=== PATIENT | female | born 1945 | race Two or more races ===

== ENCOUNTER 2017-09-18 13:40 | Day surgery (SDC) | payer OTHER ==
[~2017-09-18] VITALS: Ht 149.9 cm; Wt 75.5 kg
[~2017-09-18 13:40] MED LIST: ALBU90OI61 INH; ASPI81CH PO; ASPI81EC PO; ATOR10; ATOR80 PO; BUPR150ER PO; BUPR75 PO; CYCL10 PO; FAMO40; HYDCHL12.5 PO; HYDR1TAB94 PO; LEVO750 PO; LEVSOD100 PO; LEVSOD50 PO; METF500C PO; Multiple Vitam1 EAC1 PO; Norco 5-325 Ta1 EACH PO; OXYACE5T PO; Pepcid40 MG PO; QVAR7.3 G1 INH; VALS80 PO; VARE1; VICODIN 5-3001 EACH PO; Valium5 MG PO; Vitamin D2000 UNIT PO; Zofran8 MG PO
[2018-05-06] MEDS ORDERED: BP MED PO (14:31)
[2018-05-06] MEDS ORDERED: BREO ELLIPTA 21 EACH INH (14:46)
[2018-05-06] MEDS ORDERED: VALS80 PO (14:46)
[2018-05-18] MEDS ORDERED: LOSA50 PO (18:47)
[2018-05-20] MEDS ORDERED: OXYC5 PO (15:51)
== END 2017-09-18 14:53 | disposition home or self-care (01) ==
LOC: ORSCSDS 13:40
PROVIDERS: Orthopaedic Surgery
PROC: 3E0R33Z Introduction of Anti-inflammatory into Spinal Canal, Percutaneous Approach (ICD-10-PCS; principal; 2017-09-18 14:30)
DX: M54.16 Radiculopathy, lumbar region (principal); M48.061 Spinal stenosis, lumbar region without neurogenic claudication; E11.42 Type 2 diabetes mellitus with diabetic polyneuropathy; E78.5 Hyperlipidemia, unspecified; J44.9 Chronic obstructive pulmonary disease, unspecified; K76.0 Fatty (change of) liver, not elsewhere classified; E03.9 Hypothyroidism, unspecified; Z87.891 Personal history of nicotine dependence; Z79.82 Long term (current) use of aspirin; Z79.84 Long term (current) use of oral hypoglycemic drugs; Z79.899 Other long term (current) drug therapy
CPT/HCPCS: J1040

== ENCOUNTER 2019-05-11 05:39 | Day surgery (SDC) | payer OTHER ==
[~2019-05-11] VITALS: Ht 152.4 cm; Wt 76.0 kg
[~2019-05-11 05:39] MED LIST changes: +ACID REDUCER 1150 MG PO; +BP MED PO; +BREO ELLIPTA 21 EACH; +BREO ELLIPTA 21 EACH INH; +BUPROPION HCL200 MG PO; +BUSP10 PO; +LEVSOD75 PO; +LOSA50 PO; +MECL12.5 PO; +OXYC5 PO; +PEPCID40 MG PO; +THERA-D2000 UNIT PO; +Ventolin/Prove6.7 GM INH
--- NOTE | 2019-05-11 08:11 | NUR ---
Pt received from Trent Gomez RN, pt drowsy, cooperative. Denies pain, right radial site wnl. Call light given. Pt with HOB 35 %. IV NS with 500ml ns dianne infusing into left a/c. Pt with SR. Pt states no family here at this time.
--- NOTE | 2019-05-11 10:37 | NUR ---
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 Pt will call a cab for return ride. She is alert and oreinted.
--- NOTE | 2019-05-11 11:23 | NUR ---
Pt right radial tr-band removed. No bleeding or hematoma noted. Pt denies pain. Right radial site cleansed with light dabb of water. Dabbed dry cloth dot applied. Left A/C dressing removed, catheter intact. Pt able to ambulate assisted pt in dressing. Reviewed all instructions NO metformin for 48 hrs. Pt verbalizes understanding of discharge instructions, including appointment follow up. Pt did not make pre arrangments for discharge. Taxi called and pt paid for her ride. She had neighbors who are out of town that she was counting on. Care provider not back until 5:00. Pt did not have any contact # because she did not bring purse. Stable to home.
--- NOTE | 2019-05-11 11:28 | NUR ---
[facility] via taxi.
== END 2019-05-11 11:30 | disposition home or self-care (01) ==
LOC: MHTC 05:39
DX: Z01.810 Encounter for preprocedural cardiovascular examination (principal); I25.10 Atherosclerotic heart disease of native coronary artery without angina pectoris; E78.5 Hyperlipidemia, unspecified; E11.9 Type 2 diabetes mellitus without complications; M19.90 Unspecified osteoarthritis, unspecified site; E03.9 Hypothyroidism, unspecified; Z87.891 Personal history of nicotine dependence; Z88.8 Allergy status to other drugs, medicaments and biological substances; Z88.5 Allergy status to narcotic agent; Z91.040 Latex allergy status; Z79.899 Other long term (current) drug therapy
CPT/HCPCS: 82947; 93005; 93010; 93454; 99152; 99153; C1769; C1894; J1644; J2250; J3010; J7030; Q9967

== ENCOUNTER → 2019-11-11 | Outpatient (CLI) | payer OTHER ==
[~2019-11-11] MED LIST changes: +METO25ER; +OMEP20ER PO
== END | disposition home or self-care (01) ==
LOC: LAB 18:29 → LAB SHORT 18:29 → LAB FUT 11-10 17:40
DX: R30.9 Painful micturition, unspecified (principal)
CPT/HCPCS: 87077; 87086; 87186

== ENCOUNTER → 2020-01-11 | Outpatient (CLI) | payer OTHER ==
[~2020-01-11] MED LIST changes: +CETI5 PO; -METO25ER; +METO25ER PO
[2020-01-11 19:50] LABS: Anion Gap 5 mmol/L (6-16); Blood Urea Nitrogen 14 mg/dL (8-24); CO2, Blood 27 mmol/L (21-32); Calcium, Blood 8.8 mg/dL (8.5-10.1); Chloride, Blood 104 mmol/L (98-108); Creatinine, Blood 0.78 mg/dL (0.40-1.00); Glomerular Filtration Rate >60 (60-); Glucose, Blood 110 mg/dL (70-99); Potassium, Blood 3.9 mmol/L (3.5-5.5); Sodium, Blood 136 mmol/L (136-145)
== END | disposition home or self-care (01) ==
LOC: LAB 18:42 → LAB SHORT 18:42 → EDSTATUS 01-10 17:10 → LAB FUT 01-10 17:10
PROVIDERS: Family Medicine
DX: E11.9 Type 2 diabetes mellitus without complications (principal)
CPT/HCPCS: 80048

== ENCOUNTER → 2021-01-17 | Outpatient (CLI) | payer OTHER | END | disposition home or self-care (01) | LOC: LAB SHORT 13:54 → PLD 13:54 | DX: E11.9 Type 2 diabetes mellitus without complications (principal); R82.90 Unspecified abnormal findings in urine | CPT/HCPCS: 82043; 87077; 87086; 87186 ==

== ENCOUNTER → 2021-07-05 | Outpatient (CLI) | payer OTHER ==
[2021-07-05 13:44] LABS: BASOPHILS PERCENT AUTO 1 % (0-2); EOSINOPHILS ABSOLUTE AUTO 0.15 K/mm3 (0.00-0.68); EOSINOPHILS PERCENT AUTO 2 % (0-6); Hematocrit 39.2 % (33.0-51.0); Hemoglobin 12.7 g/dL (11.5-16.0); IMMATURE GRAN ABSOLUTE AUTO 0.04 K/mm3 (0.00-0.10); IMMATURE GRAN PERCENT AUTO 0 % (0-1); LYMPHOCYTES ABSOLUTE AUTO 2.97 K/mm3 (0.84-5.20); LYMPHOCYTES PERCENT AUTO 32 % (21-46); MONOCYTES ABSOLUTE AUTO 0.48 K/mm3 (0.16-1.47); MONOCYTES PERCENT AUTO 5 % (4-13); Mean Corpuscular HGB 29.2 pg (26.0-34.0); Mean Corpuscular HGB Conc 32.4 g/dL (31.5-36.5); Mean Corpuscular Volume 90 fL (80-100); Mean Platelet Volume 10.3 fL (9.1-12.4); NEUTROPHILS ABSOLUTE AUTO 5.44 K/mm3 (1.96-9.15); NEUTROPHILS PERCENT AUTO 59 % (41-73); Platelet Count 311 K/mm3 (150-400); RDW Standard Deviation 46.2 fL (35.1-46.3); Red Blood Cell Count 4.35 M/mm3 (3.80-5.20); White Blood Cell Count 9.18 K/mm3 (4.00-11.30)
[2021-07-05 14:34] LABS: Alanine Aminotransfer (ALT/SGP 31 U/L (12-78); Albumin, Blood 3.5 g/dL (3.4-5.0); Albumin/Globulin Ratio 0.9 (0.8-1.8); Alk Phos 135 U/L (50-136); Anion Gap 10 mmol/L (6-16); Aspartate Aminotrans (AST/SGOT 21 U/L (12-37); Bilirubin, Total 0.5 mg/dL (0.1-1.0); Blood Urea Nitrogen 15 mg/dL (8-24); Bun/Creatinine Ratio 18.2 (12.0-20.0); CHOL/HDL RATIO 3.1; CO2, Blood 25 mmol/L (21-32); Calcium, Blood 9.4 mg/dL (8.5-10.1); Chloride, Blood 101 mmol/L (98-108); Cholesterol 138 mg/dL (50-200); Creatinine, Blood 0.82 mg/dL (0.40-1.00); Globulin, Blood 4.1 g/dL (2.2-4.0); Glomerular Filtration Rate >60 (60-); Glucose, Blood 102 mg/dL (70-99); HDL Cholesterol 45 mg/dL (>39); LDL/HDL RATIO 1.6; Low Density Lipoprotein Chol 73 mg/dL (0-110); Potassium, Blood 4.4 mmol/L (3.5-5.5); Sodium, Blood 136 mmol/L (136-145); Total Protein, Blood 7.6 g/dL (6.4-8.2); Triglycerides 101 mg/dL (30-160); Very Low Density Lipoprot Chol 20 mg/dL (6-32)
== END | disposition home or self-care (01) ==
LOC: LAB SHORT 09:20
PROVIDERS: Nurse Practitioner Family
DX: E11.9 Type 2 diabetes mellitus without complications (principal); I10 Essential (primary) hypertension; E03.9 Hypothyroidism, unspecified; E78.5 Hyperlipidemia, unspecified
CPT/HCPCS: 80053; 80061; 83036; 84443; 85025

== ENCOUNTER 2021-09-12 16:30 | Emergency (ER) | payer OTHER ==
[~2021-09-12] VITALS: Ht 152.4 cm; Wt 72.6 kg
[2021-09-12] MEDS ORDERED: HYDROCODONE-AC1 EA10 PO (17:50)
== END 2021-09-12 18:20 | disposition home or self-care (01) ==
LOC: ER 16:30
DX: S42.212A Unspecified displaced fracture of surgical neck of left humerus, initial encounter for closed fracture (principal); W18.30XA Fall on same level, unspecified, initial encounter; Z88.8 Allergy status to other drugs, medicaments and biological substances; Z88.5 Allergy status to narcotic agent; Z91.040 Latex allergy status; Z79.899 Other long term (current) drug therapy; Z79.84 Long term (current) use of oral hypoglycemic drugs; Z79.82 Long term (current) use of aspirin; Z87.891 Personal history of nicotine dependence
CPT/HCPCS: 73030; 96374; 99284-25; A9270; J1885

== ENCOUNTER 2021-09-14 10:53 | Observation (INO) | payer OTHER ==
[~2021-09-14] VITALS: Ht 147.3 cm; Wt 76.4 kg
[~2021-09-14 10:53] MED LIST changes: +HYDROCODONE-AC1 EA10 PO
[2021-09-14 12:31] LABS: Influenza A, PCR NEGATIVE (NEGATIVE); Influenza B, PCR NEGATIVE (NEGATIVE); Resp Syncytial Virus, PCR NEGATIVE (NEGATIVE); SARS-Cov-2 (COVID-19) PCR, MMC NEGATIVE (NEGATIVE)
[2021-09-14 12:43] LABS: BASOPHILS ABSOLUTE AUTO 0.04 K/mm3 (0.00-0.23); BASOPHILS PERCENT AUTO 0 % (0-2); EOSINOPHILS ABSOLUTE AUTO 0.01 K/mm3 (0.00-0.68); EOSINOPHILS PERCENT AUTO 0 % (0-6); Hematocrit 37.5 % (33.0-51.0); Hemoglobin 12.2 g/dL (11.5-16.0); IMMATURE GRAN ABSOLUTE AUTO 0.04 K/mm3 (0.00-0.10); IMMATURE GRAN PERCENT AUTO 0 % (0-1); LYMPHOCYTES ABSOLUTE AUTO 1.29 K/mm3 (0.84-5.20); LYMPHOCYTES PERCENT AUTO 10 % (21-46); MONOCYTES PERCENT AUTO 5 % (4-13); Mean Corpuscular HGB 29.2 pg (26.0-34.0); Mean Corpuscular HGB Conc 32.5 g/dL (31.5-36.5); Mean Corpuscular Volume 90 fL (80-100); Mean Platelet Volume 9.3 fL (9.1-12.4); NEUTROPHILS ABSOLUTE AUTO 11.08 K/mm3 (1.96-9.15); NEUTROPHILS PERCENT AUTO 84 % (41-73); Platelet Count 292 K/mm3 (150-400); RDW Coefficient Variation 16.1 % (11.7-14.2); RDW Standard Deviation 52.8 fL (35.1-46.3); Red Blood Cell Count 4.18 M/mm3 (3.80-5.20); White Blood Cell Count 13.16 K/mm3 (4.00-11.30)
[2021-09-14 12:55] LABS: Alanine Aminotransfer (ALT/SGP 18 U/L (12-78); Albumin, Blood 3.8 g/dL (3.4-5.0); Albumin/Globulin Ratio 0.9 (0.8-1.8); Alk Phos 180 U/L (50-136); Anion Gap 7 mmol/L (6-16); Aspartate Aminotrans (AST/SGOT 11 U/L (12-37); Bilirubin, Total 0.7 mg/dL (0.1-1.0); Blood Urea Nitrogen 15 mg/dL (8-24); Bun/Creatinine Ratio 17.8 (12.0-20.0); CO2, Blood 26 mmol/L (21-32); Chloride, Blood 98 mmol/L (98-108); Creatinine, Blood 0.84 mg/dL (0.40-1.00); Globulin, Blood 4.4 g/dL (2.2-4.0); Glomerular Filtration Rate >60 (60-); Glucose, Blood 191 mg/dL (70-99); Potassium, Blood 4.1 mmol/L (3.5-5.5); Sodium, Blood 131 mmol/L (136-145); Total Protein, Blood 8.2 g/dL (6.4-8.2)
--- NOTE | 2021-09-14 22:33 | NUR ---
ADMIT NOTE: 75 YR OLD FEMALE ADMITTED TO FLOOR FROM THE ED WITH DX OF SYNCOPE. ED RN REPORTED PT HAD SOME 4 FALLS OVER THS PAST 24 HRS. REPORTED RECENT FX OF LEFT SHOULDER IN A PREVIOUS FALL WELL. ALERT AND ORIENTED X 4. FALL PRECAUTIONS DISCUSSED, PT AGREES TO USE CALL LIGHT PRIOR TO ATTEMPTS TO GET OUT OF BED. CALL LIGHT IN REACH. RAILS UP X 3.
--- NOTE | 2021-09-15 03:36 | NUR ---
HEAVY EQUIPMENT SUPERVISOR SUMMARY WAS ADMITTED EARLIER IN THE SHIFT WITH DX OF VERTIGO, WITH SEVERAL FALLS BEFORE COMING INTO THE HOSPITAL, AND HAD A FX LEFT SHOULDER DUE TO APPARENT PREVIOUS FALL AT HOME. PLACED ON MED Stitch, SINUS RHYTHM. NO VOICED SYNCOPE. HAS BEEN RESTING QUIETLY WITH OCCASIONAL INTERRUPTIONS. ONLY OUT OF BED WITH ASSIST. CALL LIGHT IN REACH
--- NOTE | 2021-09-15 03:53 | NUR ---
BP ELEVATED: 151/128. CALL PLACED TO MD CRIME LAB ANALYST. ORDERS RECEIVED TO DECREASE IVF FROM 100 ML/HR TO 50 ML/HR. WILL RE CHECK BP IN 1 TO 2 HRS. PT REMAINS ASYMPTOMATIC. CALL LIGHT IN REACH
[2021-09-15 07:08] LABS: BASOPHILS ABSOLUTE AUTO 0.05 K/mm3 (0.00-0.23); BASOPHILS PERCENT AUTO 1 % (0-2); EOSINOPHILS ABSOLUTE AUTO 0.11 K/mm3 (0.00-0.68); EOSINOPHILS PERCENT AUTO 1 % (0-6); Hematocrit 32.2 % (33.0-51.0); Hemoglobin 10.3 g/dL (11.5-16.0); IMMATURE GRAN ABSOLUTE AUTO 0.02 K/mm3 (0.00-0.10); IMMATURE GRAN PERCENT AUTO 0 % (0-1); LYMPHOCYTES PERCENT AUTO 24 % (21-46); MONOCYTES ABSOLUTE AUTO 0.58 K/mm3 (0.16-1.47); MONOCYTES PERCENT AUTO 7 % (4-13); Mean Corpuscular HGB 29.3 pg (26.0-34.0); Mean Corpuscular Volume 92 fL (80-100); Mean Platelet Volume 9.3 fL (9.1-12.4); NEUTROPHILS ABSOLUTE AUTO 5.19 K/mm3 (1.96-9.15); NEUTROPHILS PERCENT AUTO 66 % (41-73); Platelet Count 223 K/mm3 (150-400); RDW Coefficient Variation 16.4 % (11.7-14.2); RDW Standard Deviation 54.4 fL (35.1-46.3); Red Blood Cell Count 3.51 M/mm3 (3.80-5.20); White Blood Cell Count 7.85 K/mm3 (4.00-11.30)
[2021-09-15 07:33] LABS: Anion Gap 4 mmol/L (6-16); Blood Urea Nitrogen 17 mg/dL (8-24); Bun/Creatinine Ratio 20.6 (12.0-20.0); CO2, Blood 26 mmol/L (21-32); CPK Creatine Kinase 110 U/L (26-193); Calcium, Blood 8.1 mg/dL (8.5-10.1); Chloride, Blood 102 mmol/L (98-108); Creatinine, Blood 0.83 mg/dL (0.40-1.00); Glomerular Filtration Rate >60 (60-); Glucose, Blood 131 mg/dL (70-99); Potassium, Blood 3.9 mmol/L (3.5-5.5); Sodium, Blood 132 mmol/L (136-145)
[2021-09-15] MEDS ORDERED: FAMO20 PO (11:41)
== END 2021-09-15 15:48 | disposition home health service (06) ==
LOC: ER 10:53 → MEDS 10:54
PROVIDERS: Physician Assistant; ADMIT Internal Medicine
DX: I95.1 Orthostatic hypotension (principal); J44.9 Chronic obstructive pulmonary disease, unspecified; I10 Essential (primary) hypertension; E78.5 Hyperlipidemia, unspecified; E11.9 Type 2 diabetes mellitus without complications; E03.9 Hypothyroidism, unspecified; F32.A Depression, unspecified; I73.9 Peripheral vascular disease, unspecified; F41.9 Anxiety disorder, unspecified; E87.1 Hypo-osmolality and hyponatremia; S42.252A Displaced fracture of greater tuberosity of left humerus, initial encounter for closed fracture; S42.212A Unspecified displaced fracture of surgical neck of left humerus, initial encounter for closed fracture; W19.XXXA Unspecified fall, initial encounter; Z20.822 Contact with and (suspected) exposure to COVID-19; Z91.040 Latex allergy status; Z88.6 Allergy status to analgesic agent; Z88.8 Allergy status to other drugs, medicaments and biological substances; Z88.5 Allergy status to narcotic agent; Z79.84 Long term (current) use of oral hypoglycemic drugs; Z79.82 Long term (current) use of aspirin; Z87.891 Personal history of nicotine dependence
CPT/HCPCS: 0241U; 36415; 70450; 71045; 73030; 80048; 80053; 80400; 82533; 82550; 82947; 85025; 93005; 93010; 97110; 97161; 97530; A9270; J0834; J2405; J7120

== ENCOUNTER 2022-02-18 14:30 | Emergency (ER) | payer OTHER ==
[~2022-02-18] VITALS: Ht 149.9 cm; Wt 74.8 kg
[~2022-02-18 14:30] MED LIST changes: +FAMO20 PO
[2022-02-18 15:12] LABS: BASOPHILS ABSOLUTE AUTO 0.08 K/mm3 (0.00-0.23); BASOPHILS PERCENT AUTO 1 % (0-2); EOSINOPHILS ABSOLUTE AUTO 0.19 K/mm3 (0.00-0.68); EOSINOPHILS PERCENT AUTO 2 % (0-6); Hematocrit 41.3 % (33.0-51.0); Hemoglobin 13.5 g/dL (11.5-16.0); IMMATURE GRAN ABSOLUTE AUTO 0.03 K/mm3 (0.00-0.10); IMMATURE GRAN PERCENT AUTO 0 % (0-1); LYMPHOCYTES PERCENT AUTO 23 % (21-46); MONOCYTES ABSOLUTE AUTO 0.58 K/mm3 (0.16-1.47); MONOCYTES PERCENT AUTO 5 % (4-13); Mean Corpuscular HGB 28.1 pg (26.0-34.0); Mean Corpuscular HGB Conc 32.7 g/dL (31.5-36.5); Mean Corpuscular Volume 86 fL (80-100); Mean Platelet Volume 9.3 fL (9.1-12.4); NEUTROPHILS PERCENT AUTO 69 % (41-73); Platelet Count 326 K/mm3 (150-400); RDW Coefficient Variation 17.5 % (11.7-14.2); RDW Standard Deviation 55.4 fL (35.1-46.3); White Blood Cell Count 11.68 K/mm3 (4.00-11.30)
[2022-02-18 15:26] LABS: Albumin, Blood 3.7 g/dL (3.4-5.0); Bilirubin, Total 0.4 mg/dL (0.1-1.0); Bun/Creatinine Ratio 18.6 (12.0-20.0); Calcium, Blood 8.9 mg/dL (8.5-10.1); Creatinine, Blood 0.75 mg/dL (0.40-1.00); Globulin, Blood 3.6 g/dL (2.2-4.0); Potassium, Blood 3.9 mmol/L (3.5-5.5); Total Protein, Blood 7.3 g/dL (6.4-8.2)
[2022-02-18] MEDS ORDERED: LIPITOR80 MG PO (15:49)
== END 2022-02-18 18:30 | disposition home or self-care (01) ==
LOC: ER 14:30
PROVIDERS: Physician Assistant
DX: R07.9 Chest pain, unspecified (principal); Z79.899 Other long term (current) drug therapy; Z79.84 Long term (current) use of oral hypoglycemic drugs
CPT/HCPCS: 36415; 71046; 80053; 83690; 83880; 84484; 85025

== ENCOUNTER → 2022-05-24 | Outpatient (CLI) | payer OTHER ==
[~2022-05-24] MED LIST changes: +LIPITOR80 MG PO
== END | disposition home or self-care (01) ==
LOC: LAB SHORT 17:22 → LAB 17:22
DX: E11.9 Type 2 diabetes mellitus without complications (principal); R35.0 Frequency of micturition
CPT/HCPCS: 82043; 87077; 87086; 87186

== ENCOUNTER → 2023-07-08 | Outpatient (CLI) | payer OTHER ==
[2023-07-08 19:55] LABS: BASOPHILS ABSOLUTE AUTO 0.11 K/mm3 (0.00-0.23); BASOPHILS PERCENT AUTO 1 % (0-2); EOSINOPHILS PERCENT AUTO 1 % (0-6); Hematocrit 49.4 % (33.0-51.0); Hemoglobin 16.5 g/dL (11.5-16.0); IMMATURE GRAN ABSOLUTE AUTO 0.04 K/mm3 (0.00-0.10); IMMATURE GRAN PERCENT AUTO 0 % (0-1); LYMPHOCYTES ABSOLUTE AUTO 3.55 K/mm3 (0.84-5.20); LYMPHOCYTES PERCENT AUTO 24 % (21-46); MONOCYTES ABSOLUTE AUTO 0.71 K/mm3 (0.16-1.47); MONOCYTES PERCENT AUTO 5 % (4-13); Mean Corpuscular HGB 31.5 pg (26.0-34.0); Mean Corpuscular HGB Conc 33.4 g/dL (31.5-36.5); Mean Corpuscular Volume 95 fL (80-100); Mean Platelet Volume 9.4 fL (9.1-12.4); NEUTROPHILS ABSOLUTE AUTO 10.43 K/mm3 (1.96-9.15); NEUTROPHILS PERCENT AUTO 69 % (41-73); Platelet Count 356 K/mm3 (150-400); RDW Coefficient Variation 14.6 % (11.7-14.2); RDW Standard Deviation 50.9 fL (35.1-46.3); Red Blood Cell Count 5.23 M/mm3 (3.80-5.20); White Blood Cell Count 15.04 K/mm3 (4.00-11.30)
[2023-07-08 20:49] LABS: Albumin/Globulin Ratio 0.9 (0.8-1.8); Bilirubin, Total 0.5 mg/dL (0.1-1.0); Bun/Creatinine Ratio 17.5 (12.0-20.0); Calcium, Blood 9.3 mg/dL (8.5-10.1); Creatinine, Blood 0.63 mg/dL (0.40-1.00); Globulin, Blood 4.3 g/dL (2.2-4.0); Potassium, Blood 4.3 mmol/L (3.5-5.5); Total Protein, Blood 8.3 g/dL (6.4-8.2)
== END ==
LOC: LAB 17:46 → LAB SHORT 17:46
PROVIDERS: Nurse Practitioner Family
DX: I10 Essential (primary) hypertension (principal)
CPT/HCPCS: 80053; 85025

== ENCOUNTER → 2023-07-14 | Outpatient (CLI) | payer OTHER ==
[2023-07-14 19:05] LABS: Microalbumin, Random Urine 88.7 mg/L (0.000-20.000)
== END ==
LOC: LAB 16:20 → LAB SHORT 16:20 → EDSTATUS 10-28 12:10 → LAB FUT 10-28 12:10
PROVIDERS: Nurse Practitioner Family
DX: N39.3 Stress incontinence (female) (male) (principal); E11.8 Type 2 diabetes mellitus with unspecified complications; R30.0 Dysuria
CPT/HCPCS: 82043; 82570; 87086

== ENCOUNTER 2023-12-06 13:53 | Emergency (ER) | payer OTHER ==
[~2023-12-06] VITALS: Ht 149.9 cm; Wt 65.8 kg
[2023-12-06 14:34] LABS: BASOPHILS ABSOLUTE AUTO 0.08 K/mm3 (0.00-0.23); BASOPHILS PERCENT AUTO 1 % (0-2); EOSINOPHILS ABSOLUTE AUTO 0.21 K/mm3 (0.00-0.68); EOSINOPHILS PERCENT AUTO 3 % (0-6); Hemoglobin 16.6 g/dL (11.5-16.0); IMMATURE GRAN ABSOLUTE AUTO 0.01 K/mm3 (0.00-0.10); IMMATURE GRAN PERCENT AUTO 0 % (0-1); LYMPHOCYTES PERCENT AUTO 32 % (21-46); MONOCYTES ABSOLUTE AUTO 0.45 K/mm3 (0.16-1.47); MONOCYTES PERCENT AUTO 5 % (4-13); Mean Corpuscular HGB 31.7 pg (26.0-34.0); Mean Corpuscular HGB Conc 33.9 g/dL (31.5-36.5); Mean Corpuscular Volume 94 fL (80-100); Mean Platelet Volume 9.1 fL (9.1-12.4); NEUTROPHILS ABSOLUTE AUTO 4.94 K/mm3 (1.96-9.15); NEUTROPHILS PERCENT AUTO 59 % (41-73); Platelet Count 209 K/mm3 (150-400); RDW Coefficient Variation 16.1 % (11.7-14.2); RDW Standard Deviation 55.4 fL (35.1-46.3); Red Blood Cell Count 5.23 M/mm3 (3.80-5.20); White Blood Cell Count 8.39 K/mm3 (4.00-11.30)
[2023-12-06 14:45] LABS: Albumin, Blood 3.6 g/dL (3.4-5.0); Bilirubin, Total 0.4 mg/dL (0.1-1.0); Bun/Creatinine Ratio 22.1 (12.0-20.0); Calcium, Blood 8.5 mg/dL (8.5-10.1); Creatinine, Blood 0.73 mg/dL (0.40-1.00); Globulin, Blood 3.6 g/dL (2.2-4.0); Potassium, Blood 3.8 mmol/L (3.5-5.5); Total Protein, Blood 7.2 g/dL (6.4-8.2)
[2023-12-06] MEDS ORDERED: JARDIANCE10 MG PO (15:29)
[2023-12-06] MEDS ORDERED: ZYRTEC10 M3 PO (15:31)
[2023-12-06] MEDS ORDERED: Budeprion Xl300 MG PO (15:31)
[2023-12-06] MEDS ORDERED: LEVSOD100 PO (15:32)
[2023-12-06] MEDS ORDERED: MECL25 PO (15:33)
[2023-12-06] MEDS ORDERED: OXYB5 PO (15:34)
[2023-12-06] MEDS ORDERED: TRIDERM28.4 GM TOP (15:35)
[2023-12-06] MEDS ORDERED: GABA100 PO (15:36)
[2023-12-06] MEDS ORDERED: ESCI10 PO (15:36)
[2023-12-06 16:40] VITALS: BP 154/100
== END 2023-12-06 16:49 | disposition home or self-care (01) ==
LOC: ER 13:53
PROVIDERS: Emergency Medicine
DX: H53.8 Other visual disturbances (principal); F17.200 Nicotine dependence, unspecified, uncomplicated; I10 Essential (primary) hypertension; E11.9 Type 2 diabetes mellitus without complications; J44.9 Chronic obstructive pulmonary disease, unspecified; E78.5 Hyperlipidemia, unspecified; Z79.84 Long term (current) use of oral hypoglycemic drugs; Z79.899 Other long term (current) drug therapy; Z91.040 Latex allergy status; Z88.5 Allergy status to narcotic agent; Z88.8 Allergy status to other drugs, medicaments and biological substances
CPT/HCPCS: 70450; 80053; 82947; 85025; 85651; 93005; 93010; 99284-25

== ENCOUNTER → 2024-03-16 | Outpatient (CLI) | payer OTHER ==
[~2024-03-16] MED LIST changes: +Budeprion Xl300 MG PO; +ESCI10 PO; +GABA100 PO; +JARDIANCE10 MG PO; +MECL25 PO; +OXYB5 PO; +TRIDERM28.4 GM TOP; +ZYRTEC10 M3 PO
[2024-03-16 19:52] LABS: Creatinine, Urine Random 54.5 mg/dL (27.00-270.00)
[2024-03-16 19:55] LABS: Microalb/Creat Ratio UR, Rand 343.119 mg/g (0.000-30.000)
== END ==
LOC: LAB 16:13 → LAB SHORT 16:13
PROVIDERS: Nurse Practitioner Family
DX: E11.8 Type 2 diabetes mellitus with unspecified complications (principal); N39.46 Mixed incontinence
CPT/HCPCS: 82043; 82570; 87086

== ENCOUNTER 2024-03-25 10:39 | Day surgery (SDC) | payer OTHER ==
[2024-03-25] VITALS (10 sets, daily range): BP systolic 125–165; BP diastolic 58–95
[~2024-03-25] VITALS: Ht 149.9 cm; Wt 69.4 kg
[2024-03-25] MEDS ORDERED: NS 250 ML IV ONE (12:26)
[2024-03-25] MEDS ORDERED: Heparin Sodium 1000 Units/ML 10ML MDV ONE (12:26)
[2024-03-25] MEDS ORDERED: NS 1,000 ML IV ONE ×2 (12:26→12:29)
[2024-03-25] MEDS ORDERED: Nitroglycerin 2 MG/20 ML BTL ONE (12:26)
[2024-03-25] MEDS ORDERED: FentaNYL Citrate 50 MCG/ML 2 ML Injection ONE ×2 (12:29→14:20)
[2024-03-25] MEDS ORDERED: Midazolam HCl 1MG / ML 2ML Vial ONE ×2 (12:29→14:20)
[2024-03-25] MEDS ORDERED: Verapamil HCL 2.5 MG/ML 2ML Injection ONE (13:31)
--- NOTE | 2024-03-25 15:15 | NUR ---
pt back to recovery from lab. pt a&o. repeat v/s. groin site soft and non-tender per pt. no bleeding noted. pedal access site soft and non-tender per pt. no bleeding noted.
--- NOTE | 2024-03-25 15:32 | NUR ---
BILAT DP AND PT PULSES FOUND VIA DOPPLER. DR MARTINEZ AT BEDSIDE.
--- NOTE | 2024-03-25 15:33 | NUR ---
PT WATCHING TV.
--- NOTE | 2024-03-25 15:50 | NUR ---
PT GIVEN FOOD, COFFEE, AND WATER PER REQUEST. PT SAT TO 30 DEGREES. GROIN SITE SOFT AND NON-TENDER PER PT. NO BLEEDING NOTED.
--- NOTE | 2024-03-25 15:54 | NUR ---
HAD DISCUSSION WITH PT ABOUT FOLLOWING UP W/ PCP AND GETTING BACK ON HOME O2. PT O2 SAT 84-90% ON RA PRIOR TO PROCEDURE. PT STATED THAT WAS NORMAL FOR HER AND THAT SHE REFUSED TO USE HOME O2. PT VERBLAIZED UNDERSTANDING AND STATED SHE WOULD CONTACT HER PCP. CURRENT O2 SAT 94% ON 2LPM VIA NC.
--- NOTE | 2024-03-25 16:34 | NUR ---
pt ambulated to restroom w/ cane. groin site soft and non-tender per pt. no bleeding noted. pedal site soft and non-tender per pt. no bleeding noted.
--- NOTE | 2024-03-25 17:21 | NUR ---
after pt returned from restroom pt o2 sat found to be 77% on ra. nc placed at 4lpm. o2 sat increased to 94%. pt again informed of need to be on home o2. pt denied feeling increased sob. stated she felt at baseline. sherie hawthorne called [facility] for emergent home o2 delivery so pt could have access to home o2 again tonight. pt given dc instructions and verbalized understadning. iv out. pt changed. pt taken to y via wc by ama hawthorne. pt to be taken home via taxi. pt sts daughter art is at home and available to assist pt tonight. pt verbalized understadning of home o2 need.
--- NOTE | 2024-03-25 17:43 | NUR ---
home o2 orders faxed to [facility] at [phone]. signed and verified by dr norton.
== END 2024-03-25 17:45 | disposition home or self-care (01) ==
LOC: MHTC 10:39
DX: E11.51 Type 2 diabetes mellitus with diabetic peripheral angiopathy without gangrene (principal); I70.222 Atherosclerosis of native arteries of extremities with rest pain, left leg; I25.10 Atherosclerotic heart disease of native coronary artery without angina pectoris; J44.9 Chronic obstructive pulmonary disease, unspecified; I10 Essential (primary) hypertension; E78.5 Hyperlipidemia, unspecified; F17.210 Nicotine dependence, cigarettes, uncomplicated; Z88.8 Allergy status to other drugs, medicaments and biological substances
CPT/HCPCS: 36200; 36247; 37224; 75716; 75774; 76937; 99152; 99153; C1725; C1760; C1769; C1887; C1894; J1644; J2250; J3010; J7030; J7050; Q9967

== ENCOUNTER → 2024-10-19 | Outpatient (CLI) | payer OTHER ==
[2024-10-19 16:10] LABS: BASOPHILS ABSOLUTE AUTO 0.11 K/mm3 (0.00-0.23); BASOPHILS PERCENT AUTO 1 % (0-2); EOSINOPHILS ABSOLUTE AUTO 0.21 K/mm3 (0.00-0.68); EOSINOPHILS PERCENT AUTO 2 % (0-6); Hematocrit 51.5 % (33.0-51.0); Hemoglobin 17.1 g/dL (11.5-16.0); IMMATURE GRAN ABSOLUTE AUTO 0.02 K/mm3 (0.00-0.10); IMMATURE GRAN PERCENT AUTO 0 % (0-1); LYMPHOCYTES ABSOLUTE AUTO 2.92 K/mm3 (0.84-5.20); LYMPHOCYTES PERCENT AUTO 30 % (21-46); MONOCYTES ABSOLUTE AUTO 0.47 K/mm3 (0.16-1.47); MONOCYTES PERCENT AUTO 5 % (4-13); Mean Corpuscular HGB 32.2 pg (26.0-34.0); Mean Corpuscular HGB Conc 33.2 g/dL (31.5-36.5); Mean Corpuscular Volume 97 fL (80-100); NEUTROPHILS ABSOLUTE AUTO 5.86 K/mm3 (1.96-9.15); NEUTROPHILS PERCENT AUTO 61 % (41-73); Platelet Count 236 K/mm3 (150-400); RDW Coefficient Variation 14.6 % (11.7-14.2); Red Blood Cell Count 5.31 M/mm3 (3.80-5.20); White Blood Cell Count 9.59 K/mm3 (4.00-11.30)
[2024-10-19 16:48] LABS: Alanine Aminotransfer (ALT/SGP 23 U/L (12-78); Albumin/Globulin Ratio 1.1 (0.8-1.8); Alk Phos 189 U/L (50-136); Anion Gap 10 mmol/L (3-11); Aspartate Aminotrans (AST/SGOT 18 U/L (12-37); Bilirubin, Total 0.7 mg/dL (0.1-1.0); Blood Urea Nitrogen 19 mg/dL (8-24); Bun/Creatinine Ratio 24.5 (12.0-20.0); CHOL/HDL RATIO 4.6; CO2, Blood 25 mmol/L (21-32); Calcium, Blood 8.7 mg/dL (8.5-10.1); Chloride, Blood 104 mmol/L (98-108); Cholesterol 187 mg/dL (50-200); Creatinine, Blood 0.78 mg/dL (0.40-1.00); Globulin, Blood 3.7 g/dL (2.2-4.0); Glomerular Filtration Rate 77 (60-); Glucose, Blood 155 mg/dL (70-99); HDL Cholesterol 41 mg/dL (>39); LDL/HDL RATIO 2.8; Low Density Lipoprotein Chol 116 mg/dL (0-110); Sodium, Blood 135 mmol/L (136-145); Total Protein, Blood 7.7 g/dL (6.4-8.2); Triglycerides 152 mg/dL (30-160); Very Low Density Lipoprot Chol 30 mg/dL (6-32)
== END ==
LOC: LAB SHORT 12:00 → LAB 12:00
PROVIDERS: Nurse Practitioner Family
DX: E03.9 Hypothyroidism, unspecified (principal); E11.8 Type 2 diabetes mellitus with unspecified complications; E78.5 Hyperlipidemia, unspecified; I10 Essential (primary) hypertension
CPT/HCPCS: 80053; 80061; 83036; 84443; 85025

== ENCOUNTER 2025-02-17 12:39 | Day surgery (SDC) | payer OTHER ==
[~2025-02-17] VITALS: Ht 149.9 cm; Wt 69.5 kg
[~2025-02-17 12:39] MED LIST changes: +ALEN70 PO; +Balanced Salt Epinephrine Irrigation Solution 500 mL IR SCH; +CLOP75 PO; +Chantix1 MG PO; +MIRTAZAPINE7.5 M5 PO; +Midazolam HCl 1MG / ML 2ML Vial ONE; +Moxifloxacin HCL 0.5 MG/0.1 ML 0.4MLSYR LEFTEYE SCH; +NITR.4SL SL; +NS 500 ML IV ONE; +PHENYLEPHRINE\\TROPICAMIDE\\TETRACAINE OPHTHALMIC DILATING SOLN LEFTEYE PRN; +Povidone-Iodine 450 DROP/30 ML Solution LEFTEYE SCH; +Povidone-Iodine 450 DROP/30 ML Solution ONE; +Tetracaine HCl/Pf 0.5% Opth Soln 4 ml ONE; +Triamcinolone Inj Susp 40 MG / ML 1ML Vial INJ SCH; +Triamcinolone Inj Susp 40 MG / ML 1ML Vial ONE
--- NOTE | 2025-02-17 13:53 | NUR ---
[facility] [facility]30. PATIENT ASSISTED AT SCALE, HAD QUESTIONS, THEN WAS ASSISTED INTO THE BED. PATIENT BOOSTED IN BED AND ADJUSTED FOR COMFORT. PATIENT IN BED AND READY FOR VITAL SIGNS AT 1348.
[2025-02-17] MEDS ORDERED: BREO ELLIPTA 21 EAC1 IH (14:06)
[2025-02-17] MEDS ORDERED: VARENICLINE TART1 M2 (14:08)
[2025-02-17] MEDS ORDERED: NS 500 ML IV ONE (14:10)
[2025-02-17] MEDS ORDERED: EUTHYROX88 MC1 PO (14:10)
[2025-02-17] MEDS ORDERED: METOPROLOL SUCC25 MG PO (14:10)
[2025-02-17] MEDS ORDERED: Cetirizine HCl10 MG PO (14:12)
[2025-02-17] MEDS ORDERED: Tetracaine HCl 0.5% Opth Soln 15 ml LEFTEYE ONE (14:29)
[2025-02-17 14:55] VITALS: BP 155/89
== END 2025-02-17 15:15 | disposition home or self-care (01) ==
LOC: ORSCSDS 12:39
PROVIDERS: Ophthalmology
PROC: 08RK3JZ Replacement of Left Lens with Synthetic Substitute, Percutaneous Approach (ICD-10-PCS; principal; 2025-02-17 14:30)
DX: E11.36 Type 2 diabetes mellitus with diabetic cataract (principal); H25.813 Combined forms of age-related cataract, bilateral; I10 Essential (primary) hypertension; I25.10 Atherosclerotic heart disease of native coronary artery without angina pectoris; G47.33 Obstructive sleep apnea (adult) (pediatric); I73.9 Peripheral vascular disease, unspecified; J44.9 Chronic obstructive pulmonary disease, unspecified; E78.5 Hyperlipidemia, unspecified; F32.A Depression, unspecified; Z79.899 Other long term (current) drug therapy
CPT/HCPCS: 82947; J2250; J3301; J7040; V2632

== ENCOUNTER 2025-02-24 11:34 | Day surgery (SDC) | payer OTHER ==
[~2025-02-24] VITALS: Ht 149.9 cm; Wt 68.2 kg
[~2025-02-24 11:34] MED LIST changes: +BREO ELLIPTA 21 EAC1 IH; +Cetirizine HCl10 MG PO; +EUTHYROX88 MC1 PO; +METOPROLOL SUCC25 MG PO; -Midazolam HCl 1MG / ML 2ML Vial ONE; -Moxifloxacin HCL 0.5 MG/0.1 ML 0.4MLSYR LEFTEYE SCH; +Moxifloxacin HCL 0.5 MG/0.1 ML 0.4MLSYR RIGHTEYE SCH; -PHENYLEPHRINE\\TROPICAMIDE\\TETRACAINE OPHTHALMIC DILATING SOLN LEFTEYE PRN; +PHENYLEPHRINE\\TROPICAMIDE\\TETRACAINE OPHTHALMIC DILATING SOLN RIGHTEYE PRN; -Povidone-Iodine 450 DROP/30 ML Solution LEFTEYE SCH; +Povidone-Iodine 450 DROP/30 ML Solution RIGHTEYE SCH; +VARENICLINE TART1 M2
--- NOTE | 2025-02-24 12:56 | NUR ---
02/24/25 1256 ELAINE OLIVAREZ PT BROUGHT BACK TO SCALES @ 1225 SITUATED IN BED 1240
[2025-02-24] MEDS ORDERED: NS 500 ML IV ONE (13:00)
[2025-02-24] MEDS ORDERED: Midazolam HCl 1MG / ML 2ML Vial ONE (13:15)
--- NOTE | 2025-02-24 13:43 | NUR ---
02/24/25 1343 Vita Hernandez RN CALLING PT'S DAUGHTER
[2025-02-24 13:51] VITALS: BP 110/63
== END 2025-02-24 14:43 | disposition home or self-care (01) ==
LOC: ORSCSDS 11:34
PROVIDERS: Ophthalmology
PROC: 08RJ3JZ Replacement of Right Lens with Synthetic Substitute, Percutaneous Approach (ICD-10-PCS; principal; 2025-02-24 13:30)
DX: E11.36 Type 2 diabetes mellitus with diabetic cataract (principal); H25.811 Combined forms of age-related cataract, right eye; Z96.1 Presence of intraocular lens; F17.210 Nicotine dependence, cigarettes, uncomplicated; E78.5 Hyperlipidemia, unspecified; I10 Essential (primary) hypertension; G47.33 Obstructive sleep apnea (adult) (pediatric); H34.212 Partial retinal artery occlusion, left eye; J44.9 Chronic obstructive pulmonary disease, unspecified; Z95.828 Presence of other vascular implants and grafts; I25.10 Atherosclerotic heart disease of native coronary artery without angina pectoris; F32.A Depression, unspecified; Z79.899 Other long term (current) drug therapy
CPT/HCPCS: 82947; J2250; J3301; J7040; V2632

== ENCOUNTER 2025-03-04 13:33 | Emergency (ER) | payer OTHER ==
[~2025-03-04] VITALS: Ht 149.9 cm; Wt 68.0 kg
[~2025-03-04 13:33] MED LIST changes: -Balanced Salt Epinephrine Irrigation Solution 500 mL IR SCH; -Moxifloxacin HCL 0.5 MG/0.1 ML 0.4MLSYR RIGHTEYE SCH; -NS 500 ML IV ONE; -PHENYLEPHRINE\\TROPICAMIDE\\TETRACAINE OPHTHALMIC DILATING SOLN RIGHTEYE PRN; -Povidone-Iodine 450 DROP/30 ML Solution ONE; -Povidone-Iodine 450 DROP/30 ML Solution RIGHTEYE SCH; -Tetracaine HCl/Pf 0.5% Opth Soln 4 ml ONE; -Triamcinolone Inj Susp 40 MG / ML 1ML Vial INJ SCH; -Triamcinolone Inj Susp 40 MG / ML 1ML Vial ONE
[2025-03-04 14:13] LABS: BASOPHILS ABSOLUTE AUTO 0.07 K/mm3 (0.00-0.23); BASOPHILS PERCENT AUTO 1 % (0-2); EOSINOPHILS ABSOLUTE AUTO 0.14 K/mm3 (0.00-0.68); EOSINOPHILS PERCENT AUTO 2 % (0-6); Hematocrit 49.2 % (33.0-51.0); Hemoglobin 16.4 g/dL (11.5-16.0); IMMATURE GRAN ABSOLUTE AUTO 0.02 K/mm3 (0.00-0.10); IMMATURE GRAN PERCENT AUTO 0 % (0-1); LYMPHOCYTES ABSOLUTE AUTO 2.24 K/mm3 (0.84-5.20); LYMPHOCYTES PERCENT AUTO 26 % (21-46); MONOCYTES ABSOLUTE AUTO 0.43 K/mm3 (0.16-1.47); MONOCYTES PERCENT AUTO 5 % (4-13); Mean Corpuscular HGB Conc 33.3 g/dL (31.5-36.5); Mean Corpuscular Volume 95 fL (80-100); NEUTROPHILS ABSOLUTE AUTO 5.86 K/mm3 (1.96-9.15); NEUTROPHILS PERCENT AUTO 67 % (41-73); NRBC ABSOLUTE 0.00 K/mm3 (0.00-0.02); NRBC Auto 0.0 /100 WBC (0.0-0.2); Platelet Count 244 K/mm3 (150-400); RDW Coefficient Variation 14.6 % (11.7-14.2); RDW Standard Deviation 51.3 fL (35.1-46.3)
[2025-03-04 14:25] LABS: Alanine Aminotransfer (ALT/SGP 33.0 U/L (12-78); Albumin, Blood 3.5 g/dL (3.4-5.0); Albumin/Globulin Ratio 0.8 (0.8-1.8); Anion Gap 5.0 mmol/L (3-11); Aspartate Aminotrans (AST/SGOT 22.0 U/L (12-37); Bilirubin, Total 0.4 mg/dL (0.1-1.0); Blood Urea Nitrogen 16.0 mg/dL (8-24); CO2, Blood 26.0 mmol/L (21-32); Calcium, Blood 8.5 mg/dL (8.5-10.1); Chloride, Blood 107.0 mmol/L (98-108); Creatinine, Blood 0.68 mg/dL (0.40-1.00); Globulin, Blood 4.3 g/dL (2.2-4.0); Glucose, Blood 154.0 mg/dL (70-99); Potassium, Blood 4.1 mmol/L (3.5-5.5); Sodium, Blood 134.0 mmol/L (136-145); Total Protein, Blood 7.8 g/dL (6.4-8.2)
[2025-03-04 17:55] VITALS: BP 160/72
== END 2025-03-04 18:00 | disposition home or self-care (01) ==
LOC: ER 13:33
PROVIDERS: Emergency Medicine
DX: I20.9 Angina pectoris, unspecified (principal); F17.200 Nicotine dependence, unspecified, uncomplicated; Z91.040 Latex allergy status; Z88.5 Allergy status to narcotic agent; Z88.8 Allergy status to other drugs, medicaments and biological substances; Z79.02 Long term (current) use of antithrombotics/antiplatelets; Z79.82 Long term (current) use of aspirin; Z79.51 Long term (current) use of inhaled steroids; Z79.899 Other long term (current) drug therapy
CPT/HCPCS: 71046; 80053; 83690; 84484; 85025; 93005; 93010; 99285-25

== ENCOUNTER 2025-03-27 04:41 | Inpatient (IN) | payer OTHER ==
[2025-03-27] VITALS (11 sets, daily range): BP systolic 117–138; BP diastolic 70–112
[~2025-03-27] VITALS: Ht 149.9 cm; Wt 74.0 kg
[2025-03-27 05:25] LABS: BASOPHILS ABSOLUTE AUTO 0.08 K/mm3 (0.00-0.23); BASOPHILS PERCENT AUTO 1 % (0-2); EOSINOPHILS ABSOLUTE AUTO 0.09 K/mm3 (0.00-0.68); EOSINOPHILS PERCENT AUTO 1 % (0-6); Hematocrit 46.6 % (33.0-51.0); Hemoglobin 15.5 g/dL (11.5-16.0); IMMATURE GRAN ABSOLUTE AUTO 0.05 K/mm3 (0.00-0.10); IMMATURE GRAN PERCENT AUTO 0 % (0-1); LYMPHOCYTES ABSOLUTE AUTO 1.47 K/mm3 (0.84-5.20); LYMPHOCYTES PERCENT AUTO 13 % (21-46); MONOCYTES ABSOLUTE AUTO 0.38 K/mm3 (0.16-1.47); MONOCYTES PERCENT AUTO 3 % (4-13); Mean Corpuscular HGB Conc 33.3 g/dL (31.5-36.5); Mean Corpuscular Volume 95 fL (80-100); NEUTROPHILS ABSOLUTE AUTO 9.33 K/mm3 (1.96-9.15); NEUTROPHILS PERCENT AUTO 82 % (41-73); NRBC ABSOLUTE 0.00 K/mm3 (0.00-0.02); NRBC Auto 0.0 /100 WBC (0.0-0.2); RDW Coefficient Variation 14.6 % (11.7-14.2); RDW Standard Deviation 51.1 fL (35.1-46.3)
[2025-03-27 05:31] LABS: Alanine Aminotransfer (ALT/SGP 38.0 U/L (12-78); Albumin, Blood 3.8 g/dL (3.4-5.0); Albumin/Globulin Ratio 0.9 (0.8-1.8); Anion Gap 8.0 mmol/L (3-11); Aspartate Aminotrans (AST/SGOT 42.0 U/L (12-37); Bilirubin, Total 0.5 mg/dL (0.1-1.0); Blood Urea Nitrogen 18.0 mg/dL (8-24); CO2, Blood 23.0 mmol/L (21-32); Calcium, Blood 8.4 mg/dL (8.5-10.1); Chloride, Blood 107.0 mmol/L (98-108); Creatinine, Blood 0.74 mg/dL (0.40-1.00); Globulin, Blood 4.4 g/dL (2.2-4.0); Glucose, Blood 182.0 mg/dL (70-99); Potassium, Blood 4.2 mmol/L (3.5-5.5); Sodium, Blood 134.0 mmol/L (136-145); Total Protein, Blood 8.2 g/dL (6.4-8.2)
[2025-03-27 05:48] LABS: Platelet Count 205 K/mm3 (150-400)
[2025-03-27] MEDS ORDERED: Nitroglycerin 1 INCH/GM PKT TOP ONE (06:15)
[2025-03-27] MEDS ORDERED: Dose Adjust by Pharmacy XX STA ×2 (07:12→14:28)
[2025-03-27] MEDS ORDERED: Heparin Sodium 5000 Units/ML 1ML MDV IV ONE (07:15)
[2025-03-27] MEDS ORDERED: Heparin Sodium,Porcine/0.5 NS 500 ML IV SCH ×2 (07:15→14:45)
[2025-03-27 07:17] LABS: Prothrombin Time Results 10.9 Sec (9.7-11.5)
[2025-03-27] MEDS ORDERED: Magnesium Hydroxide Conc 10 ML UDC PO PRN (08:45)
[2025-03-27] MEDS ORDERED: Ondansetron HCl 2 MG / ML 2ML Vial IV PRN (08:45)
[2025-03-27] MEDS ORDERED: Verapamil HCL 2.5 MG/ML 2ML Injection ONE (09:39)
[2025-03-27] MEDS ORDERED: NS 1,000 ML IV ONE ×2 (09:40→10:08)
[2025-03-27] MEDS ORDERED: Nitroglycerin 2 MG/20 ML BTL ONE (09:40)
[2025-03-27] MEDS ORDERED: NiCARdipine HCL 1,000 MCG/5 ML SYR ONE (09:40)
[2025-03-27] MEDS ORDERED: NS 250 ML IV ONE (09:40)
[2025-03-27] MEDS ORDERED: FentaNYL Citrate 50 MCG/ML 2 ML Injection ONE (10:08)
[2025-03-27] MEDS ORDERED: Midazolam HCl 1MG / ML 2ML Vial ONE ×2 (10:08→10:39)
[2025-03-27] MEDS ORDERED: NS 1,000 ML IV SCH (11:00)
--- NOTE | 2025-03-27 11:30 | NUR ---
ARRIVAL PATIENT ARRIVES TO UNIT VIA BED AND IS AWAKE AND ABLE TO ANSWER ALL QUESTIONS. PATIENT REPORTED 8/10 CHEST PAIN RIGHT IN THE CENTER OF THE CHEST, ORDERS FOR NITRO PASTE WERE PLACED AND THIS RN TO BRING THAT IN. PATIENT VITAL SIGNS STABLE AND ORIETNED TO THE ROOM.
[2025-03-27] MEDS ORDERED: Nitroglycerin 1 INCH/GM PKT TOP SCH ×2 (14:00)
[2025-03-27] MEDS ORDERED: Morphine Sulfate 4 MG/1 ML Injection IV PRN (14:25)
--- NOTE | 2025-03-27 14:31 | NUR ---
MD CONTACTED: MD WAS CONTACTED REGARDING PATIENT REPORTING 10/10 CHEST PAIN ONCE AGAIN. MD GAVE ORDERS FOR MORPHINE.
--- NOTE | 2025-03-27 15:04 | NUR ---
MD CONTACTED: CONTACTED REGARDING PATIENTS STATUS OF COBRRA TRANSFER, MADE AWARE WE JUST GOT A BED AT [facility].
--- NOTE | 2025-03-27 15:48 | NUR ---
MD CONTACTED: MD WAS CONTACTED PATIENT REPORTED COUGHING UP BLOOD TINGED SPUTUM. THIS WAS THE FIRST OCCURENCE AND MD GAVE VERBAL ORDER TO CONTINUE HEPARIN
--- NOTE | 2025-03-27 16:11 | NUR ---
COBRA TRANSFER: PATIENT WAS ACCEPTED AT [facility] AND TRANSPORATION VIA AMBULANCE WAS ARRANGED. PATIENT IS ALERT AND ORIENTED X4 & COOPERATIVE WITH HER CARE. PATIENT WAS ABLE TO STAND AND PIVOT TO [place]. HEAPRIN DRIP CONTINUED TO RUN AT 12U/KG 13.2MLS/HR. TRANSPORATION TOOK PCU PUMP AND MODULE WITH THEM. PATIENT HAD LEFT RADIAL ACCESS SITE THAT WAS RECOVERED WITHOUT ANY DIFFICULTIES,CLEAR TEGADERM BANDAGE OVER THE SITE. PATIENT DAUGHTER WAS NOTIFIED AND PATIENT WAS AWAITING FOR HER TO ARRIVE PRIOR TO HER LEAVING BUT PATIENT'S DAUGHTER WAS NOT ABLE TO ARRIVE PRIOR TO COBRA TRANSFER. PATIENT TOOK ALL PERSONAL BELONGINGS WITH HER. TRANSPORT TOOK ALL PAPERWORK AND PATIENT LEFT VIA GURNEY.
== END 2025-03-27 16:14 | disposition short-term general hospital (02) | DRG 282 ==
LOC: ER 04:41 → ERHOLD 08:39 → PCU 11:06
PROVIDERS: Emergency Medicine; ADMIT Hospitalist
PROC: 4A023N7 Measurement of Cardiac Sampling and Pressure, Left Heart, Percutaneous Approach (ICD-10-PCS; principal; 2025-03-27)
PROC: B2111ZZ Fluoroscopy of Multiple Coronary Arteries using Low Osmolar Contrast (ICD-10-PCS; 2025-03-27)
DX: I21.4 Non-ST elevation (NSTEMI) myocardial infarction (principal); I25.110 Atherosclerotic heart disease of native coronary artery with unstable angina pectoris; J44.9 Chronic obstructive pulmonary disease, unspecified; E11.9 Type 2 diabetes mellitus without complications; I10 Essential (primary) hypertension; E66.9 Obesity, unspecified; Z91.040 Latex allergy status; Z88.5 Allergy status to narcotic agent; Z88.8 Allergy status to other drugs, medicaments and biological substances; Z91.048 Other nonmedicinal substance allergy status; Z90.710 Acquired absence of both cervix and uterus; I73.9 Peripheral vascular disease, unspecified; F17.210 Nicotine dependence, cigarettes, uncomplicated; E03.9 Hypothyroidism, unspecified; Z90.49 Acquired absence of other specified parts of digestive tract; Z98.890 Other specified postprocedural states; F32.A Depression, unspecified; F41.9 Anxiety disorder, unspecified; E78.5 Hyperlipidemia, unspecified; Z95.5 Presence of coronary angioplasty implant and graft; Z68.30 Body mass index [BMI] 30.0-30.9, adult; Z79.82 Long term (current) use of aspirin; Z79.02 Long term (current) use of antithrombotics/antiplatelets; Z79.890 Hormone replacement therapy; Z79.899 Other long term (current) drug therapy; Z71.6 Tobacco abuse counseling
CPT/HCPCS: 36415; 71046; 76937; 80053; 83690; 84484; 85025; 85520; 85610; 85730; 93005; 93010; 93458; 96374; 99152; 99153; 99285-25; A9270; C1769; C1894; C8929; J1644; J2250; J2270; J2405; J3010; J7030; J7050; Q9957; Q9967